=== PATIENT | male | born 1990 | race Caucasian/White ===

== ENCOUNTER 2020-02-20 08:50 | Emergency (ER) | payer OTHER, SELFPAY ==
[2020-02-20 08:58] VITALS: BP 150/91; PULSE 111; RESP 16; TEMP 37; O2SAT 98
--- NOTE | 2020-02-20 09:14 | ED.URI ---
HPI - URI/Sore Throat General Stated Complaint: sore throat cough and chest congest Time Seen by Provider: 02/20/20 09:14 Source: patient History of Present Illness HPI Narrative: Patient presents with cough chest congestion no fever no shortness of breath no chest pain. Patient denies any sore throat no nasal congestion no nasal pressure. Patient has no known exposure to the cold at COVID virus, no recent travel no travel from [facility] and no international travel no known exposure to any positive COVID 19 cases. 2 DAYS AGO . NO FEVER, NO NAUSEA, NO DIARHEA. MD elicited complaint: cough Related Data Allergies Allergy/AdvReac Type Severity Reaction Status Date / Time No Known Allergies Allergy Verified 02/20/20 09:20 Review of Systems Review of Systems: Narrative: CONSTITUTIONAL: Denies chills, or sweats. Reports fever and generalized body aches EYES: Denies visual changes, redness, or discharge. ENT: Denies otalgia. Reports nasal congestion runny nose and sore throat CARDIOVASCULAR: Denies chest pain, palpitations, or edema. RESPIRATORY: Denies dyspnea. Reports occasional cough GASTROINTESTINAL: Denies abdominal pain, nausea, vomiting, or diarrhea. GENITOURINARY: Denies dysuria or hematuria. SKIN: Denies rash or itching. MUSCULOSKELETAL: Denies back pain, joint pain, or myalgia. Reports generalized body aches NEUROLOGIC: Denies headache, numbness, or weakness. PSYCHIATRIC: Denies anxiety or depression. PMFSH Comments At time of signature, agree with nursing past medical, surgical, social and family history. There is no relevant family history pertinent to the presenting complaint Exam Narrative: Exam Narrative: GENERAL APPEARANCE: The patient is a well-developed, well-nourished , in no acute distress. SKIN: Skin is warm and dry without erythema, swelling or exudate. There is good turgor. No tenting. HEAD: Atraumatic. Normocephalic. No temporal or scalp tenderness. EYES: Moist and bright. Sclera and conjunctivae normal. No discharge. PERRLA. Extraocular motions intact. Gross visual acuity intact. EARS: Pinna is normal shape and contour. Clear external auditory canals. TM pearly berger with good cone of light, no erythema or suppuration. Bilateral cerumen noted no gross hearing deficit. NOSE: pink, moist mucosa with good air movement. Clear rhinorrhea without nasal flaring. Septum midline. Mouth: moist mucous membranes. THROAT; mild erythema noted to posterior oropharynx with moderate postnasal drainage. Without exudate or ulceration.. Uvula midline. Normal movement of soft palate. NECK: Supple and nontender with full range of motion without discomfort. No meningeal signs. LUNGS: Equal and bilateral breath sounds without wheezes, rales or rhonchi. CHEST: The chest wall is without retractions or use of accessory muscles. HEART: Has a regular rate and rhythm without murmur, gallops, click or rub. ABDOMEN: Soft, nontender with positive active bowel sounds. No rebound tenderness. EXTREMITIES: Without cyanosis, clubbing or edema. Equal 2+ distal pulses and 2 second capillary refill noted. NEUROLOGIC: alert, active, developmentally normal for age. The patient moves all extremities with normal muscle strength. Normal muscle tone is noted. Normal coordination is noted. NO focal neurological findings noted. Course Vital Signs Vital signs: Vital Signs Temperature 37.0 C 02/20/20 08:58 Pulse Rate 111 H 02/20/20 08:58 Respiratory Rate 16 02/20/20 08:58 Blood Pressure 150/91 H 02/20/20 08:58 Pulse Oximetry 98 02/20/20 08:58 Temperature 37.0 C 02/20/20 08:58 Pulse Rate 111 H 02/20/20 08:58 Respiratory Rate 16 02/20/20 08:58 Blood Pressure 150/91 H 02/20/20 08:58 Pulse Oximetry 98 02/20/20 08:58 Addressed elevated BP today. Today's blood pressure higher than recommended range. Discussed importance of follow -up with PCP and possible grader patrol effects/cardiovascular events related to HTN. Currently patient
== END 2020-02-20 09:30 | disposition home or self-care (01) ==
PROVIDERS: Emergency Provider Nurse Practitioner Family; PCP Internal Medicine
DX: J06.9 Acute upper respiratory infection, unspecified (principal)
CPT/HCPCS: 87880; 99203; G0463

== ENCOUNTER 2020-03-22 08:10 | Emergency (ER) | payer OTHER, SELFPAY ==
[2020-03-22 08:18] VITALS: BP 144/79; PULSE 106; RESP 18; TEMP 36.3; O2SAT 98
--- NOTE | 2020-03-22 08:42 | ED.URI ---
HPI - URI/Sore Throat General Chief Complaint: Upper Respiratory Infection Stated Complaint: sore throat/lump in throat Time Seen by Provider: 03/22/20 08:31 Source: patient, RN notes reviewed and old records reviewed Mode of arrival: ambulatory Limitations: no limitations History of Present Illness HPI Narrative: Patient presents today complaining of Constantly clearing the throat, postnasal drip, dry cough. Symptoms are present in the mornings, but lessen throughout the day. Symptoms have been present for 3 to 4 weeks. Patient was seen at [facility] on 02/20/2020, diagnosed with strep throat, and placed on amoxicillin. States he did finish his course of amoxicillin. He is not trying any other [id number] medications for symptoms prior to arrival. Patient is a non-smoker. MD elicited complaint: other (dry cough, PND) Related Data Allergies Allergy/AdvReac Type Severity Reaction Status Date / Time No Known Allergies Allergy Verified 02/20/20 09:20 Review of Systems Review of Systems: Narrative: CONSTITUTIONAL: Denies body aches, fever, chills, or sweats. EYES: Denies visual changes, redness, or discharge. ENT: Denies rhinorrhea, congestion, sore throat, or otalgia.+Postnasal drip, clearing throat CARDIOVASCULAR: Denies chest pain, palpitations, or edema. RESPIRATORY: Denies dyspnea. +Dry cough GASTROINTESTINAL: Denies abdominal pain, nausea, vomiting, or diarrhea. GENITOURINARY: Denies dysuria or hematuria. SKIN: Denies rash, itching, or wounds. MUSCULOSKELETAL: Denies back pain, joint pain, or myalgia. NEUROLOGIC: Denies headache, numbness, tingling, or weakness. PSYCH: Denies depression or anxiety. PMFSH Comments At time of signature, I have reviewed and agree with nursing past medical, surgical, social and family history unless otherwise noted. Please see nursing chart for further information. There is no relevant family history pertinent to the presenting complaint Exam Narrative: Exam Narrative: GENERAL: Well-appearing, well-nourished, and in no acute distress. HEAD: Normocephalic, atraumatic. EYES: EOMI. No redness or drainage. Conjunctivae normal. ENT: Mucous membranes pink and moist. Nares clear. No rhinorrhea. TMs normal bilaterally. Throat normal. Uvula midline. Moderate clear postnasal drainage. NECK: Normal AROM. Supple. No lymphadenopathy. CHEST: No respiratory distress. Clear to auscultation. HEART: Regular rate and rhythm. No murmur appreciated. Normal peripheral pulses. EXTREMITIES: Normal range of motion. No edema. SKIN: Warm, dry, no rash. Capillary refill normal. Normal skin turgor. NEURO: No focal deficits. Alert and oriented x3. Gait steady. PSYCH: Normal affect. No signs of depression or anxiety. Course Vital Signs Vital signs: Vital Signs Temperature 97.4 F L 03/22/20 08:18 Pulse Rate 106 H 03/22/20 08:18 Respiratory Rate 18 03/22/20 08:18 Blood Pressure 144/79 H 03/22/20 08:18 Pulse Oximetry 98 03/22/20 08:18 Temperature 97.4 F L 03/22/20 08:18 Pulse Rate 106 H 03/22/20 08:18 Respiratory Rate 18 03/22/20 08:18 Blood Pressure 144/79 H 03/22/20 08:18 Pulse Oximetry 98 03/22/20 08:18 Reviewed. Pt has been instructed to follow up with his PCP regarding his elevated blood pressure today. MDM - URI/Sore Throat Differential Diagnosis Differential diagnosis: Likely upper respiratory infection, otitis media, sinusitis, bronchitis, pharyngitis and other (Allergic rhinitis, strep throat) Medical Records Attestation: I reviewed the patient's medical records. Lab Data Attestation: I reviewed the patient's lab results. Labs: Strep Screen Presumptive Negative *(Reference Range: Negative)* Critical Care Time Critical Care Time Critical Care Time: No Discharge Plan Discharge Clinical Impression: Allergic rhinitis Qualifiers: Allergic rhinitis trigger: unspecified Allergic rhinitis seasonality: unspecified Qualified Cod
== END 2020-03-22 08:55 | disposition home or self-care (01) ==
PROVIDERS: Emergency Provider Nurse Practitioner; PCP Internal Medicine
DX: J30.9 Allergic rhinitis, unspecified (principal)
CPT/HCPCS: 87081; 87880; 99213; G0463

== ENCOUNTER 2022-05-10 09:11 | Emergency (ER) | payer OTHER, SELFPAY ==
[2022-05-10 09:16] VITALS: BP 140/90; PULSE 109; RESP 16; TEMP 36.8; O2SAT 97
--- NOTE | 2022-05-10 09:36 | ED.URI ---
HPI - URI/Sore Throat General Chief Complaint: Upper Respiratory Infection Stated Complaint: Sore Throat/Cough/Chest Congestion Time Seen by Provider: 05/10/22 09:26 Source: patient and RN notes reviewed Mode of arrival: ambulatory Limitations: no limitations History of Present Illness HPI Narrative: 31-year-old male presents with concern for sore throat, cough, chest congestion that started Monday. Reports he has been taking several [id number] cold medicines with little relief. Reports he feels the cough worsen with chest congestion prompting him to seek care. He denies shortness of breath. He reports body aches and headache. MD elicited complaint: cough and sore throat Related Data Allergies Allergy/AdvReac Type Severity Reaction Status Date / Time No Known Allergies Allergy Verified 05/10/22 09:33 Review of Systems Review of Systems: CONSTITUTIONAL: Report malaise, chills, sweats EYES: Denies visual changes, redness, or discharge. ENT: Reports rhinorrhea, congestion, and sore throat. CARDIOVASCULAR: Denies chest pain, palpitations, or edema. RESPIRATORY: Reports cough, chest congestion. Denies dyspnea. GASTROINTESTINAL: Denies abdominal pain, nausea, vomiting, diarrhea SKIN: Denies rash or itching. MUSCULOSKELETAL: Reports myalgia. NEUROLOGIC: Reports headache. All systems reviewed & are unremarkable except as noted in HPI and below PMFSH Comments At time of signature, agree with nursing past medical, surgical, social and family history. There is no relevant family history pertinent to the presenting complaint Exam Narrative: GENERAL: Nontoxic-appearing and in no acute distress. HEAD: Normocephalic EYES: PERRLA, conjunctivae clear ENT: Nares clear, turbinates edematous and erythematous, clear discharge. Mucous membranes moist. TM pearly sky with dull light reflex bilaterally; no tragal tenderness. Oropharynx erythematous without lesions. Tonsils not enlarged and without exudate, no drooling, no hoarseness, no trismus, uvula midline. NECK: Supple. No lymphadenopathy CHEST: Clear to auscultation, breath sounds equal. No wheezing, rhonchi, rales, or stridor. No respiratory distress, speaks in full sentences. Cough noted HEART: Regular rate and rhythm. No murmur heard. SKIN: Warm, dry, no rash. NEURO: Alert and oriented x3. PSYCH: Normal mood and affect Course Course Emergency Course: Patient is aware of diagnosis, understands and agrees to treatment plan. Anticipatory guidance given. Patient agrees to follow-up as directed and is aware of reasons to seek care at the emergency department. Portions of this record may have been created with voice recognition software Level of Care: Express Care Visit Vital Signs Vital signs: Vital Signs Temperature 98.2 F 05/10/22 09:16 Pulse Rate 109 H 05/10/22 09:16 Respiratory Rate 16 05/10/22 09:16 Blood Pressure 140/90 05/10/22 09:16 Pulse Oximetry 97 05/10/22 09:16 Oxygen Delivery Room Air 05/10/22 09:16 Temperature 98.2 F 05/10/22 09:16 Pulse Rate 109 H 05/10/22 09:16 Respiratory Rate 16 05/10/22 09:16 Blood Pressure 140/90 05/10/22 09:16 Pulse Oximetry 97 05/10/22 09:16 Oxygen Delivery Room Air 05/10/22 09:16 Reviewed. MDM - URI/Sore Throat MDM Narrative Medical decision making narrative: Differential diagnosis considered: Chan virus, strep pharyngitis, allergic rhinitis, upper respiratory tract infection, sinusitis, rhinosinusitis, nasopharyngitis. viral pharyngitis, otitis media, otitis externa, pneumonia, bronchitis, viral cough syndrome, viral syndrome, and influenza. Exam findings show no acute concerns or changes; patient is non-toxic appearing and is in no distress. Patient is appropriate for outpatient treatment and follow-up. Lab Data Attestation: I reviewed the patient's lab results. Critical Care Time Critical Care Time Critical Care Time: No Discharge Plan Discharge Clinical Impression: COVID
== END 2022-05-10 09:40 | disposition home or self-care (01) ==
PROVIDERS: Emergency Provider Nurse Practitioner; PCP Internal Medicine
DX: U07.1 COVID-19 (principal)
CPT/HCPCS: 87426; 99213; C9803; G0463

== ENCOUNTER 2023-03-17 17:42 | Emergency (ER) | payer OTHER, SELFPAY ==
[2023-03-17 17:50] VITALS: BP 146/87; PULSE 120; RESP 18; TEMP 37.1; O2SAT 97
[2023-03-17 17:57] VITALS: BP 146/87; PULSE 120; RESP 18; TEMP 37.1; O2SAT 97
--- NOTE | 2023-03-17 18:01 | ED.URI ---
HPI - URI/Sore Throat General Chief Complaint: Upper Respiratory Infection Stated Complaint: sore throat Time Seen by Provider: 03/17/23 17:58 Source: patient, RN notes reviewed and old records reviewed Mode of arrival: ambulatory Limitations: no limitations History of Present Illness HPI Narrative: 32 year old male who presents to [facility] care with complaints of cough and sore throat which just started this morning, Patient reports that he has been sleeping most of the day.Patient reports that throat is scratchy and painful and is hard to swallow, has been using gargles for throat pain. Patient reports no known fevers, chills or sweats. Patient noted to have harsh cough at interval denies any expectoration of mucous or shortness of breath. Patient reports no know ill contacts. MD elicited complaint: cough and sore throat Onset (ago): day(s) (this morning) Pain scale (0-10): 6 Exacerbating factors: swallowing Treatments prior to arrival: other (gargles) Related Data Home Medications Medication Instructions Recorded Confirmed pantoprazole 40 mg tablet,delayed 40 mg PO DAILY 03/17/23 03/17/23 release Allergies Allergy/AdvReac Type Severity Reaction Status Date / Time No Known Allergies Allergy Verified 03/17/23 17:55 Review of Systems Review of Systems: CONSTITUTIONAL: Reports malaise,no chills, sweats, or fever. EYES: Denies visual changes, redness, or discharge. ENT: Reports rhinorrhea, congestion, sinus pain,no otalgia positive for sore throat. CARDIOVASCULAR: Denies chest pain, palpitations, or edema. RESPIRATORY: Reports cough.? Denies dyspnea. GASTROINTESTINAL: Denies abdominal pain, nausea, vomiting, diarrhea SKIN: Denies rash or itching. MUSCULOSKELETAL: Denies myalgia. NEUROLOGIC: Denies headache. All systems reviewed & are unremarkable except as noted in HPI and below PMFSH Past Medical History Medical History (Updated 03/19/23 @ 14:42 by Marli Ruggiero NP) COVID-19 04/2022 GERD (gastroesophageal reflux disease) Social History Social History (Updated 03/19/23 @ 14:42 by Marli Ruggiero NP) Smoking status: Never smoker Living arrangements: with family Gender identity (if verbalized by the patient): Male Comments At time of signature, agree with nursing past medical, surgical, social and family history. There is no relevant family history pertinent to the presenting complaint Exam Narrative: GENERAL: Well-appearing, well-nourished, and in no acute distress. HEAD: Normocephalic EYES: PERRLA, conjunctivae clear ENT: Nares clear, turbinates edematous and erythematous, clear discharge. Mucous membranes moist. TM pearly sky with dull light reflex bilaterally; no tragal tenderness. Oropharynx erythematous without lesions. Tonsils red not enlarged and without exudate, no drooling, no hoarseness, no trismus, uvula midline.post nasal drainage noted. NECK: Supple. No lymphadenopathy CHEST: Clear to auscultation, breath sounds equal. No wheezing, rhonchi, rales, or stridor. No respiratory distress, speaks in full sentences. sough, SAO2 97% on room air NEURO: Alert and oriented x3. PSYCH: Normal mood and affect Course Course Emergency Course: Patient is aware of diagnosis, understands and agrees to treatment plan.? Anticipatory guidance given.? Patient agrees to follow-up as directed and is aware of reasons to seek care at the emergency department. Portions of this record may have been created with voice recognition software Level of Care: Express Care Visit Vital Signs Vital signs: Vital Signs Temperature 37.1 C 03/17/23 17:50 Pulse Rate 120 H 03/17/23 17:50 Respiratory Rate 18 03/17/23 17:50 Blood Pressure 146/87 H 03/17/23 17:50 Pulse Oximetry 97 03/17/23 17:50 Oxygen Delivery Room Air 03/17/23 17:50 Temperature 37.1 C 03/17/23 17:57 Pulse Rate 120 H 03/17/23 17:57 Respiratory Rate 18 03/17/23 17:57 Blood Pressure 146/8
== END 2023-03-17 18:20 | disposition home or self-care (01) ==
PROVIDERS: Emergency Provider Registered Nurse; PCP Internal Medicine
DX: J06.9 Acute upper respiratory infection, unspecified (principal); K21.9 Gastro-esophageal reflux disease without esophagitis; Z86.16 Personal history of COVID-19
CPT/HCPCS: 87081; 87880; 99213; G0463

== ENCOUNTER 2023-07-22 08:10 | Emergency (ER) | payer OTHER, SELFPAY ==
[2023-07-22 08:14] VITALS: BP 151/100; PULSE 104; RESP 20; TEMP 36.8; O2SAT 96
--- NOTE | 2023-07-22 08:33 | ED.URI ---
HPI - URI/Sore Throat General Chief Complaint: Upper Respiratory Infection Stated Complaint: Heachache, Throatache, Congestion History of Present Illness HPI Narrative: PATIENT PRESENTS WITH SORE THROAT, COUGH AND NASAL CONGESTION NO PROBLEMS SWALLOWING AND NO DROOLING NORMAL PO INTAKE NO SHORTNESS OF BREATH AND NO CHEST PAIN Related Data Home Medications Medication Instructions Recorded Confirmed pantoprazole 40 mg tablet,delayed 40 mg PO DAILY 03/17/23 03/17/23 release Allergies Allergy/AdvReac Type Severity Reaction Status Date / Time No Known Allergies Allergy Verified 03/17/23 17:55 Review of Systems Review of Systems: CONSTITUTIONAL: DENIES CHILLS, OR SWEATS. REPORTS FEVER AND GENERALIZED BODY ACHES EYES: DENIES VISUAL CHANGES, REDNESS, OR DISCHARGE. ENT: DENIES OTALGIA. REPORTS NASAL CONGESTION RUNNY NOSE AND SORE THROAT CARDIOVASCULAR: DENIES CHEST PAIN, PALPITATIONS, OR EDEMA. RESPIRATORY: DENIES DYSPNEA. REPORTS OCCASIONAL COUGH GASTROINTESTINAL: DENIES ABDOMINAL PAIN, NAUSEA, VOMITING, OR DIARRHEA. GENITOURINARY: DENIES DYSURIA OR HEMATURIA. SKIN: DENIES RASH OR ITCHING. MUSCULOSKELETAL: DENIES BACK PAIN, JOINT PAIN, OR MYALGIA. REPORTS GENERALIZED BODY ACHES NEUROLOGIC: DENIES HEADACHE, NUMBNESS, OR WEAKNESS. PSYCHIATRIC: DENIES ANXIETY OR DEPRESSION. [facility] [place] Past Medical History Medical History (Updated 07/22/23 @ 08:41 by GIL Hawkins) COVID-19 04/2022 GERD (gastroesophageal reflux disease) Social History Social History (Updated 03/19/23 @ 14:42 by Marli Ruggiero NP) Smoking status: Never smoker Living arrangements: with family Gender identity (if verbalized by the patient): Male Comments AT TIME OF SIGNATURE, AGREE WITH NURSING PAST MEDICAL, SURGICAL, SOCIAL AND FAMILY HISTORY. THERE IS NO RELEVANT FAMILY HISTORY PERTINENT TO THE PRESENTING COMPLAINT Exam Narrative: THE PATIENT IS A WELL-DEVELOPED, WELL-NOURISHED IN NO ACUTE DISTRESS. SKIN: SKIN IS WARM AND DRY WITHOUT ERYTHEMA, SWELLING OR EXUDATE. THERE IS GOOD TURGOR. NO TENTING. HEAD: ATRAUMATIC. NORMOCEPHALIC. NO TEMPORAL OR SCALP TENDERNESS. EYES: MOIST AND BRIGHT. SCLERA AND CONJUNCTIVAE NORMAL. NO DISCHARGE. PERRLA. EXTRAOCULAR MOTIONS INTACT. GROSS VISUAL ACUITY INTACT. EARS: PINNA IS NORMAL SHAPE AND CONTOUR. CLEAR EXTERNAL AUDITORY CANALS. TM PEARLY ELLIOTT WITH GOOD CONE OF LIGHT, NO ERYTHEMA OR SUPPURATION. BILATERAL CERUMEN NOTED NO GROSS HEARING DEFICIT. NOSE: PINK, MOIST MUCOSA WITH GOOD AIR MOVEMENT. CLEAR RHINORRHEA WITHOUT NASAL FLARING. SEPTUM MIDLINE. MOUTH: MOIST MUCOUS MEMBRANES. THROAT; MILD ERYTHEMA NOTED TO POSTERIOR OROPHARYNX WITH MODERATE POSTNASAL DRAINAGE. WITHOUT EXUDATE OR ULCERATION.. UVULA MIDLINE. NORMAL MOVEMENT OF SOFT PALATE. NECK: SUPPLE AND NONTENDER WITH FULL RANGE OF MOTION WITHOUT DISCOMFORT. NO MENINGEAL SIGNS. LUNGS: EQUAL AND BILATERAL BREATH SOUNDS WITHOUT WHEEZES, RALES OR RHONCHI. CHEST: THE CHEST WALL IS WITHOUT RETRACTIONS OR USE OF ACCESSORY MUSCLES. HEART: HAS A REGULAR RATE AND RHYTHM WITHOUT MURMUR, GALLOPS, CLICK OR RUB. ABDOMEN: SOFT, NONTENDER WITH POSITIVE ACTIVE BOWEL SOUNDS. NO REBOUND TENDERNESS. EXTREMITIES: WITHOUT CYANOSIS, CLUBBING OR EDEMA. EQUAL 2+ DISTAL PULSES AND 2 SECOND CAPILLARY REFILL NOTED. NEUROLOGIC: ALERT, ACTIVE, . THE PATIENT MOVES ALL EXTREMITIES WITH NORMAL MUSCLE STRENGTH. NORMAL MUSCLE TONE IS NOTED. NORMAL COORDINATION IS NOTED. NO FOCAL NEUROLOGICAL FINDINGS NOTED. Course Course Level of Care: Express Care Visit Vital Signs Vital signs: Vital Signs Temperature 36.8 C 07/22/23 08:14 Pulse Rate 104 H 07/22/23 08:14 Respiratory Rate 20 07/22/23 08:14 Blood Pressure 151/100 H 07/22/23 08:14 Pulse Oximetry 96 07/22/23 08:14 Oxygen Delivery Room Air 07/22/23 08:14 Temperature 36.8 C 07/22/23 08:14 Pulse Rate 104 H 07/22/23 08:14 Respiratory Rate 20 07/22/23 08:14 Blood Pressure 151/100 H
== END 2023-07-22 08:51 | disposition home or self-care (01) ==
PROVIDERS: Emergency Provider Nurse Practitioner Family; PCP Internal Medicine
DX: U07.1 COVID-19 (principal); K21.9 Gastro-esophageal reflux disease without esophagitis
CPT/HCPCS: 87081; 87426; 87880; 99213; C9803; G0463

== ENCOUNTER 2023-11-18 09:54 | Emergency (ER) | payer OTHER, SELFPAY ==
[2023-11-18 09:59] VITALS: BP 141/87; PULSE 108; RESP 16; TEMP 36.6; O2SAT 97
--- NOTE | 2023-11-18 10:29 | ED.URI ---
HPI - URI/Sore Throat General Chief Complaint: Upper Respiratory Infection Stated Complaint: Sore Throat Time Seen by Provider: 11/18/23 10:29 Source: patient, RN notes reviewed and old records reviewed Mode of arrival: ambulatory Limitations: no limitations History of Present Illness HPI Narrative: 33-year-old male who presents to [facility] Care with complaints sore throat, nasal congestion and drainage, and cough for the past 4-5 days. Patient reports that he has had some sinus congestion for weeks but symptoms have increased for the past 4-5 days. Patient states that he has used Chloraseptic throat spray for his throat pain. Patient report no known fevers,chills or body aches, MD elicited complaint: cough and sore throat Onset (ago): day(s) (4-5) Severity: moderate Able to tolerate fluids by mouth: Yes Treatments prior to arrival: other (chloroseptic, Mucinex) Related Data Home Medications Medication Instructions Recorded Confirmed pantoprazole 40 mg tablet,delayed 40 mg PO DAILY 03/17/23 03/17/23 release Allergies Allergy/AdvReac Type Severity Reaction Status Date / Time No Known Allergies Allergy Verified 11/18/23 10:02 Review of Systems Review of Systems: CONSTITUTIONAL: Denies malaise, chills, sweats, or fever. EYES: Denies visual changes, redness, or discharge. ENT: Reports rhinorrhea, congestion, sinus pain,no otalgia and positive for sore throat. CARDIOVASCULAR: Denies chest pain, palpitations, or edema. RESPIRATORY: Reports cough.? Denies dyspnea. GASTROINTESTINAL: Denies abdominal pain, nausea, vomiting, diarrhea SKIN: Denies rash or itching. MUSCULOSKELETAL: Denies myalgia. NEUROLOGIC: Denies headache. All systems reviewed & are unremarkable except as noted in HPI and below PMFSH Past Medical History Medical History (Updated 11/20/23 @ 10:30 by Marli Ruggiero NP) Collar bone fracture surgical repair left with plate COVID-19 04/2022 GERD (gastroesophageal reflux disease) Social History Social History Smoking status: Never smoker Living arrangements: with family Gender identity (if verbalized by the patient): Male Comments At time of signature, agree with nursing past medical, surgical, social and family history. There is no relevant family history pertinent to the presenting complaint Exam Narrative: GENERAL: Well-appearing, well-nourished, and in no acute distress. HEAD: Normocephalic EYES: PERRLA, conjunctivae clear ENT: Nares clear, turbinates edematous and erythematous, clear discharge. Mucous membranes moist. TM pearly sky with dull light reflex bilaterally; no tragal tenderness. Oropharynx erythematous without lesions. Tonsils enlarged and without exudate, no drooling, no hoarseness, no trismus, uvula midline.post nasal drainage NECK: Supple. No lymphadenopathy CHEST: Clear to auscultation, breath sounds equal. No wheezing, rhonchi, rales, or stridor. No respiratory distress, speaks in full sentences.cough noted SO2 97% on room air HEART: Regular rate and rhythm. No murmur heard. SKIN: Warm, dry, no rash. NEURO: Alert and oriented x3. PSYCH: Normal mood and affect Course Course Emergency Course: Patient is aware of diagnosis, understands and agrees to treatment plan.? Anticipatory guidance given.? Patient agrees to follow-up as directed and is aware of reasons to seek care at the emergency department. Portions of this record may have been created with voice recognition software Level of Care: Express Care Visit Vital Signs Vital signs: Vital Signs Temperature 36.6 C 11/18/23 09:59 Pulse Rate 108 H 11/18/23 09:59 Respiratory Rate 16 11/18/23 09:59 Blood Pressure 141/87 H 11/18/23 09:59 Pulse Oximetry 97 11/18/23 09:59 Oxygen Delivery Room Air 11/18/23 09:59 Temperature 36.6 C 11/18/23 09:59 Pulse Rate 108 H 11/18/23 09:59 Respiratory Rat
== END 2023-11-18 10:55 | disposition home or self-care (01) ==
PROVIDERS: Emergency Provider Registered Nurse; PCP Internal Medicine
DX: J06.9 Acute upper respiratory infection, unspecified (principal); J02.9 Acute pharyngitis, unspecified; K21.9 Gastro-esophageal reflux disease without esophagitis; Z86.16 Personal history of COVID-19
CPT/HCPCS: 87081; 87880; 99213; G0463

== ENCOUNTER 2025-02-14 08:51 | Emergency (ER) | payer OTHER, SELFPAY ==
[2025-02-14 09:01] VITALS: BP 168/115; PULSE 81; RESP 20; TEMP 36.2; O2SAT 98
--- NOTE | 2025-02-14 09:05 | ED_ITS ---
HPI - Back Pain/Injury General Chief Complaint: Back Pain/Injury Stated Complaint: back pain Time Seen by Provider: 02/14/25 09:05 Source: patient Mode of arrival: ambulatory Limitations: no limitations History of Present Illness HPI Narrative: 34 yo M presents with c/o low back pain for 1 wk. Was sore after cutting grass. has also been carrying his 100lb dog due to dog having injury. Ambulatory with steady gait. No radiation of pain. No loss of bowel or bladder. No numbness/weakness. taking aspirin body and back with little relief of pain. All systems reviewed and negative except as noted above. Related Data Home Medications ?Medication ?Instructions ?Recorded ?Confirmed ?Last Taken ?Type pantoprazole 40 mg tablet,delayed 40 mg PO DAILY 03/17/23 03/17/23 Unknown History release gabapentin 100 mg capsule mg 02/14/25 Unknown History Allergies Allergy/AdvReac Type Severity Reaction Status Date / Time No Known Allergies Allergy Verified 11/18/23 10:02 Review of Systems Review of Systems: CONSTITUTIONAL: Denies fever, chills, or sweats. EYES: Denies visual changes, redness, or discharge. ENT: Denies rhinorrhea, congestion, sore throat, or otalgia. CARDIOVASCULAR: Denies chest pain, palpitations, or edema. RESPIRATORY: Denies cough or dyspnea. GASTROINTESTINAL: Denies abdominal pain, nausea, vomiting, or diarrhea. GENITOURINARY: Denies dysuria or hematuria. SKIN: Denies rash or itching. MUSCULOSKELETAL: Reports back pain. Denies joint pain, or myalgia. NEUROLOGIC: Denies headache, numbness, or weakness. PSYCHIATRIC: Denies anxiety or depression. All other systems reviewed are negative, except as documented in HPI. [facility], LAT[facility] Past Medical History Medical History (Updated 02/14/25 @ 09:14 by Nuzhat Soto NP) Collar bone fracture surgical repair left with plate COVID-19 04/2022 GERD (gastroesophageal reflux disease) Social History Social History Smoking status: Never smoker Living arrangements: with family Gender identity (if verbalized by the patient): Male Comments At time of signature, agree with nursing past medical, surgical, social and family history. There is no relevant family history pertinent to the presenting complaint. Exam Narrative: GENERAL: This is a well-nourished, well-developed patient, in no apparent distress. HEAD: normocephalic, atraumatic. EYES: PERRL. Sclera clear/white. Vision is grossly intact. EARS: External ears normal NOSE: External nose normal NECK: Neck supple, non-tender without lymphadenopathy, masses or thyromegaly. CARDIOVASCULAR: Regular rate and rhythm without murmurs, gallops, or rubs. RESPIRATORY: Clear to auscultation. Breath sounds equal bilaterally. No wheezes, rales, or rhonchi. SKIN: warm, Dry, intact with no suspicious lesions or rash, good texture and turgor. NEURO: awake, alert, and oriented to person, place and time. There were no obvious focal neurologic abnormalities. EXTREMITIES: No joint tenderness, effusion, or edema noted. No calf tenderness. Negative Homans sign bilaterally. BACK: No midline tenderness. Generalized low back muscular tenderness. Decreased flexion due to muscular tightness. Lower extremity strength 5/5 bilaterally. Course Course Level of Care: Express Care Visit Vital Signs Vital signs: Vital Signs Temperature 36.2 C L 02/14/25 09:01 Pulse Rate 81 02/14/25 09:01 Respiratory Rate 20 02/14/25 09:01 Blood Pressure 168/115 H 02/14/25 09:01 Pulse Oximetry 98 02/14/25 09:01 Oxygen Delivery Room Air 02/14/25 09:01 Temperature 36.2 C L 02/14/25 09:01 Pulse Rate 81 02/14/25 09:01 Respiratory Rate 20 02/14/25 09:01 Blood Pressure 168/115 H 02/14/25 09:01 Pulse Oximetry 98 02/14/25 09:01 Oxygen Delivery Room Air 02/14/25 09:01 Reviewed, blood pressure elevated today. Patient states took blood pressure medication right before arrival. MDM - Back Pain/Injury MDM Narrative Medical decision making narrative: Will treat low back pain with prednisone, methocarbamol. Recommend stretching, ice heat. Will follow up with primary care physician if not improving. No neuro deficits. Please be advised this is a medical document. It is intended for [id number] communication. It is written in medical language and may contain unfamiliar abbreviations or verbiage. Medical documents are intended to carry relevant information, facts as evident, and the clinical opinion of the practitioner at the time of the encounter. This report may have been done utilizing a voice recognition system. Attempts have been made to correct errors. However, there may be uncorrected grammatical, spelling, and recognition errors present. The file time of this note does not necessarily represent the time of service. Discharge Plan Discharge Clinical Impression: Strain of muscle, fascia and tendon of lower back, initial encounter, Elevated blood pressure reading Patient Disposition: Home, Self-Care Condition: Stable Instructions: Low Back Strain (ED) Additional Instructions: Stop taking Zelda Back and Body And start prescription medications today. Methocarbamol as a muscle relaxant may cause drowsiness. Do not take this medication while driving. Alternate between ice and heat. Do stretching exercises as tolerated. Follow-up with your primary care physician if symptoms are not improving. Patient Language: [place] Prescriptions: New ibuprofen 800 mg tablet 800 mg PO TID PRN (Reason: pain) Qty: 30 0RF prednisone 20 mg tablet See Rx Instructions .ROUTE .COMPLEX Qty: 12 0RF Rx Instructions: Take 3 tablets today, then 2 tablets daily for 3 days then 1 tablet daily for 3 days. methocarbamol 750 mg tablet 750 mg PO Q8H PRN (Reason: muscle pain/spasm) Qty: 30 0RF lidocaine 5 % adhesive patch,medicated 1 patch topical DAILY Qty: 15 0RF Rx Instructions: leave on most painful area for up to 12 hrs No Action gabapentin 100 mg capsule pantoprazole 40 mg tablet,delayed release (DR/EC) 40 mg PO DAILY Follow-up/Referrals: Sj,Behzad Amaro MD [Primary Care Provider] - Time of Disposition: 09:15
--- OUTSIDE RECORDS SUMMARY | 2025-02-14 09:47 | XMS_ITS | Clinical Summary ---
Author Organization [facility] Address [address] [place] [address] Care Team Providers Care Ladler Name Role Phone Behzad Gustafson MD Primary Care Provider + Tim Velasquez MD Unavailable Allergies No known active allergies Medications metoprolol tartrate (LOPRESSOR) 25 mg immediate release tablet Take 1 tablet (25 mg total) by mouth 2 (two) times a day 60 tablet 1 Active Additional Information Patient not taking.Reported on 03/23/2021 HYDROcodone-awa taminophen (NORCO) 7.5-325 mg per tablet 1 Active thiamine (VITAMIN B-1) 100 mg tablet Take by mouth daily 1 Active Active Problems Problem Noted Date Diagnosed Date Laceration of left forearm 03/12/2021 Overview (07/24/2021): Last Assessment & Plan: Since last visit there is been no complaints. He denies any pain. The area continues to heal in nicely. He will now just place a triple ointment or bacitracin over it and keep it covered. The wound is about half the size as it was compared to when he was in the hospital. It may take a further 2 or 3 weeks to heal but should slowly scar and placed in that time period we will see him back in 2 weeks to re-evaluate. Assessment & Plan (03/23/2021 1:52 PM CDT): No restrictions from surgical standpoint. Okay to return to work. Patient will call with any further questions or concerns. Assessment & Plan (03/09/2021 10:04 AM CDT): Since last visit there is been no complaints. He denies any pain. The area continues to heal in nicely. He will now just place a triple ointment or bacitracin over it and keep it covered. The wound is about half the size as it was compared to when he was in the hospital. It may take a further 2 or 3 weeks to heal but should slowly scar and placed in that time period we will see him back in 2 weeks to re-evaluate. Assessment & Plan (03/04/2021 10:12 AM CDT): The base of the remaining open wound was touched up with silver nitrate. Some remaining scab was removed. He will continue to do the wet to dry dressing changes daily. We will see him back next week to re-evaluate again Assessment & Plan (02/25/2021 10:28 AM CDT): Some of the surrounding scab has been removed. The base is granulating in nicely. They will continue to do the local packing changes for another week. We will see him back at that time to reassess. 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 He will need to be off for at least another 2 weeks until this fully heals in. We will address returning to work at that time Alcohol induced fatty liver 02/13/2021 Alcohol withdrawal syndrome with complication Transaminitis 02/12/2021 Sinus tachycardia 02/12/2021 Cellulitis of left upper extremity 02/12/2021 Elevated blood pressure reading 02/12/2021 Retained orthopedic hardware 04/27/2020 Hyperlipidemia 11/27/2018 Closed fracture of clavicle 07/18/2013 Immunizations Immunization Administration Dates Next Due DTP 12/03/1990,03/21/1989,1988 ,1988 Hep B, Adolescent or Pediatric 06/23/1998,1997,12/23/1997 Influenza, Trivalent, IM (MDV) 09/10/2020 MMR 11/28/1989 OPV 12/03/1990,03/21/1989,1988 ,1988 Tdap 01/31/2021 Medical History Medical History Date Comments Personal history of other en docrine, nutritional and metabolic disease History of diabetes mellitus - (Added by TW Conv) Hypertension Family History Medical History Relation Name Comments Heart disease Other 1 Heart Disease - (Added by TW Conv) Diabetes Other 2 Diabetes Mellit us - (Added by TW Conv) Relation Name Status Comments Other 1 Other 2 Social History Tobacco Use Types Packs/Day Years Used Date Smoking Tobacco: Former Smokeless Tobacco: Never Alcohol Use Standard Drinks/Week Comments Yes 6 (1 standard drink = 0.6 oz pur e alcohol) AUDIT-C Answer Date Recorded Q1: How often do you have a drink containing alcohol? 4 or more times a week 02/25/2021 Q2: How many drinks containi ng alcohol do you have on a typical day when you are drinking? 3 or 4 Q3: How often do you have si x or more drinks on one occasion? Weekly 02/25/2021 Sex and Gender Information Value Date Recorded Sex Assigned at Not on file Legal Sex Male 4:43 AM F[employer]ER BR[employer] MAN Gender Identity Not on file Sexual Orientation Not on file Obstetrics History Last Filed Vital Signs Vital Sign Reading Time Taken Comments Blood Pressure 145/93 07/25/2021 2:00 AM CDT Pulse 67 07/25/2021 2:00 AM CDT Temperature 36.7 C (98.1 F) 07/24/2021 10:37 PM CDT Respiratory Rate 12 07/25/2021 2:00 AM CDT Oxygen Saturation 96% 07/25/2021 2:00 AM CDT Inhaled Oxygen Concentration - - Weight 86.2 kg (190 lb) 07/24/2021 10:37 PM CDT Height 177.8 cm (5' 10 ) 07/24/2021 10:37 PM CDT Body Mass Index 27.26 07/24/2021 10:37 PM CDT Plan of Treatment Not on file Insurance [employer] Advance Directives For more information, please contact: [phone] * Full Code (Latest Code Status on File) Date Activated Date Inactivated Comments 02/12/2021 7:04 AM 02/13/2021 8:04 PM Healthcare Agents on File Name Relationship Healthcare Agent [facility] p Communication Stacy Jones Spouse [employer] Alternate [employer] Car e Agent Care Teams Ladler Relationship Specialty Start Date End Date Behzad Gustafson MD PCP - General 10/12/19 Tim Velasquez MD Consulting Physician General Surgery 02/13/21
--- OUTSIDE RECORDS SUMMARY | 2025-02-14 09:47 | XMS_ITS | Clinical Summary ---
Author Organization [facility] Address [address] [facility] [[email or web address]] [address] [place] [address] Phone Care Team Providers Care Calibrator Barometers Name Role Phone Behzad Gustafson MD Primary Care Provider [phone] Kirby Mcknight MD Unavailable SchKira acosta APRN, TELEPHONE LINEMAN Unavailable Allergies No known active allergies Medications pantoprazole (PROTONIX) 40 MG Tablet Delayed ResponseIndicatio ns:Dysphagia, unspecified type,Gastroesopha geal reflux disease without esophagitis Take 1 Tablet by mouth daily. 90 Tablet 3 4 Active gabapentin (NEURONTIN) 100 MG CapsuleIndication s:Alcohol withdrawal syndrome with complication (HCC) Take 1 Capsule by mouth 3 times daily. 270 Capsule 5 Active QUEtiapine (SEROquel) 100 MG TabletIndications :Alcohol withdrawal syndrome with complication (HCC) TAKE 1 TABLET BY MOUTH EVERY NIGHT 90 Tablet 5 Active propranolol (INDERAL) 40 MG TabletIndications :Alcohol withdrawal syndrome with complication (HCC) TAKE 1 TABLET BY MOUTH TWICE DAILY 180 Tablet 5 Active Active Problems Problem Noted Date Diagnosed Date Gastroesophageal reflux disease without esophagi tis 08/16/2024 Anxiety and depression 02/19/2024 Alcohol induced fatty liver 02/13/2021 Alcohol withdrawal syndrome with complication Mixed hyperlipidemia 11/27/2018 Resolved Problems Problem Noted Date Diagnosed Date Resolved Date Laceration of left forearm 03/12/2021 0 08/16/2024 Overview (03/12/2021): Last Assessment & Plan: Since last visit [...] him back in 2 weeks to re-evaluate. Encounters Date Type Department Care Team Description [facility] [address] [place] [address] Behzad Gustafson MD Medication Refill 12/13/20[facility] [address] [place], [place] [address] Behzad Gustafson MD Medication Refill from Last 3 Months Immunizations Immunization Administration Dates Next Due DTP Vaccine 12/03/1990, 9,1988,1987 Hepatitis B Vaccine, Pediatric/adolescent 06/23/1998,01/20/1998,12/23/1997 Influenza Vaccine greater than 3 yrs 09/10/2022, 09/10/2020 Influenza, Seasonal, Injecta ble, Undefined 09/10/2020 MMR Vaccine 11/28/1989 OPV 12/03/1990, 9,1988,1987 TDAP Vaccine 01/31/2021 Family History Medical History Relation Name Comments No Known Problems Brother 1 No Known Problems Brother 2 Diabetes Father No Known Problems Mother Diabetes Paternal Grandfather Heart Attack Paternal Grandmother No Known Problems Sister Relation Name Status Comments Brother 1 Alive Brother 2 Alive Father Alive Mother Alive Paternal Grandfather Alive Paternal Grandmother Sister Alive Social History Tobacco Use Types Packs/Day Years Used Date Smoking Tobacco: Former Cigars Q uit: 2021 Smokeless Tobacco: Never Tobacco Cessation:Counseling Given: Not Answered Comments:1 cigar/mo Alcohol Use Standard Drinks/Week Comments Yes 10 (1 standard drink = 0.6 oz pu re alcohol) [facility] Utilities Answer Date Recorded In the past 12 months has th e electric, gas, oil, or water company threatened to shut off services in your home? No 08/16/2024 Social Connection and Isolation Panel [NHANES] A nswer Date Recorded In a typical week, how many times do you talk on the phone with family, friends, or neighbors? Three times a week 08/16/2024 How often do you get togethe r with friends or relatives? Once a week 08/16/2024 How often do you attend chur ch or oriental orthodox services? Never 08/16/2024 Active Member of Clubs or Organizations Not on f ile 08/16/2024 Attends Club or Organization Meetings Not on jeff e 08/16/2024 Marital Status Not on file 08/16/2024 AUDIT-C Answer Date Recorded Q1: How often do you have a drink containing alc ohol? Monthly or less 08/16/2024 Q2: How many drinks containi ng alcohol do you have on a typical day when you are drinking? 1 or 2 08/16/2024 Q3: How often do you have si x or more drinks on one occasion? Less than monthly 08/16/2024 Overall Financial Resource Strain (CARDIA) Answe r Date Recorded How hard is it for you to pa y for the very basics like food, housing, medical care, and heating? Patient declined 08/16/2024 PHQ-2 Answer Date Recorded Total Score - Questions 1-9 0 07/29 [facility] - Occupational Stress Questionnaire Answer Date Recorded Do you feel stress - tense, restless, nervous, or anxious, or unable to sleep at night because your mind is troubled all the time - these days? To some extent 08/16/2024 Exercise Vital Sign Answer Date Recorde d On average, how many days pe r week do you engage in moderate to strenuous exercise (like a brisk walk)? 5 days Minutes of Exercise per Session Not on file 08/16/2024 Hunger Vital Sign Answer Date Recorded Within the past 12 months, y ou worried that your food would run out before you got the money to buy more. Never true 08/16/20 24 Within the past 12 months, t he food you bought just didn't last and you didn't have money to get more. Never true 08/16/2024 PRAPARE - Transportation Answer Date Re corded In the past 12 months, has l ack of transportation kept you from medical appointments or from getting medications? No 07/29 In the past 12 months, has l ack of transportation kept you from meetings, work, or from getting things needed for daily living? No 08/16/2024 Housing Stability Vital Sign Answer Tj e Recorded In the last 12 months, was t here a time when you were not able to pay the mortgage or rent on time? No 08/16/2024 In the past 12 months, how m any times have you moved where you were living? 0 08/16/2024 At any time in the past 12 m [facility], were you homeless or living in a correction (including now)? No 08/16/2024 Sexually Active Control Partners Comments Yes Surgical Female Sex and Gender Information Value Date Recorded Sex Assigned at Not on file Legal Sex Male 7:57 AM CDT Gender Identity Not on file Sexual Orientation Not on file Occupation Industry Job Start Date Job End Date [employer] Not on file Not on file Not on file Last Filed Vital Signs Vital Sign Reading Time Taken Comments Blood Pressure 138/80 08/16/2024 2:09 PM CDT Pulse 76 08/16/2024 2:09 PM CDT Temperature 36.1 C (97 F) 08/16/2024 2:09 PM CDT Respiratory Rate 20 08/16/2024 2:09 PM CDT Oxygen Saturation 97% 08/16/2024 2:09 PM CDT Inhaled Oxygen Concentration - - Weight 95.7 kg (211 lb) 08/16/2024 2:09 PM CDT Height 177.8 cm (5' 10 ) 08/16/2024 2:09 PM CDT Body Mass Index 30.28 08/16/2024 2:09 PM CDT Plan of Treatment Upcoming Encounters Date Type Department Care Team (Late st Contact Info) Description 02/18/2025 8:00 AM CDT Office Visit [facility] [place] [address] [place] [id number] Behzad Gustafson MD [address] [place] [address] Health Maintenance Due Date Last Done Comments Hepatitis C Virus (HCV) Screening 1988 Influenza Immunization (#1) 07/28/202408/27, 09/10/2020, 09/10/2020 SARS-COV-2 Immunization ( - 2023- season) 2024 03/11/2021, 02/18/2021 DTaP/Tdap/Td Immunization (6 - Td or Tdap) 01/31/2031 01/31/2021, 12/03/1990, 03/21/1989, Additional history exists Respiratory Syncytial Virus (RSV) Immunization (Adult) (1 - 1-dose 75+ series) 2063 Hepatitis B Immunization Completed 998, 01/20/1998, 12/23/1997 Meningococcal Immunization (ACWY) Aged Out No longer eligible based on patient's age to complete this topic Pneumococcal Immunization Combined Aged Out No longer eligible based on patient's age to complete this topic Rotavirus Immunization Aged Out No lo nger eligible based on patient's age to complete this topic Insurance [facility] Care Teams Calibrator Barometers Relationship Specialty Start Date End Date Behzad Gustafson MD [address] [place] [address] PCP - General Internal Medicine 05/10/19 Kirby Mcknight MD [address] [place] [address] Consulting Physician Orthopaedic Surgery 02/24/21 Kira Eisenberg APRN, TELEPHONE LINEMAN [address] [place] [address] Nurse Practitioner Gastroenterology 12/20/22
--- OUTSIDE RECORDS SUMMARY | 2025-02-14 09:47 | XMS_ITS | Clinical Summary ---
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[employer] Gender Identity Not on file Sexual Orientation Not on file Plan of Treatment Health Maintenance Due Date Last Done Comments Annual Physical 1991 Hepatitis C 2006 DTaP, Tdap and Td Vaccines ( 1 - Tdap) 2007 Hepatitis B Vaccines (1 of 3 - 19+ 3-dose series) 2007 COVID-19 Vaccine (2023-2 5 season) 2024 Influenza Adult (#1) 2024 HPV Vaccines Aged Out No longer eligi ble based on patient's age to complete this topic Meningococcal B Vaccine Aged Out No l onger eligible based on patient's age to complete this topic Meningococcal Vaccine Aged Out No gia red eligible based on patient's age to complete this topic Pneumococcal Vaccine: Pediat rics (0 to 5 Years) and At-Risk Patients (6 to 64 Years) Aged Out No longer eligible b ased on patient's age to complete this topic RSV Immunizations Under 20 Months Aged Out No longer eligible based on patient's age to complete this topic
--- OUTSIDE RECORDS SUMMARY | 2025-02-14 09:47 | XMS_ITS | Encounter Summary ---
Author Organization [facility] Address [address] [place] [address] Phone Care Team Providers Care Qualitative Researcher Name Role Phone Behzad Gustafson MD Primary Care Provider [phone] Kirby Mcknight MD Unavailable Kira Eisenberg APRN, [facility] Unavailable Reason for Visit * Reason Comments Medication Refill Encounter Details Date Type Department Care Team (Late st Contact Info) Description 08/16/2024 Refill [facility] - Primary Care - [place] [address] [place] [address] Behzad Gustafson MD [address] [place] [address] Medication Refill Social History Tobacco Use Types Packs/Day Years Used Date Smoking Tobacco: Former Cigars Q uit: 2021 Smokeless Tobacco: Never Comments:1 cigar/mo Alcohol Use Standard Drinks/Week Comments Yes 10 (1 standard drink = 0.6 oz pu re alcohol) [facility] Utilities Answer Date Recorded In the past 12 months has [employer] electric, gas, oil, or water company [...] Total Score - Questions 1-9 0 07/29 [facility] - Occupational Stress Questionnaire Answer Date Recorded [...] any time in the past 12 m [facility], were you homeless or living in a group home (including now)? No 08/16/2024 Sexually Active Control Partners Comments Yes Surgical Female Sex and Gender Information Value Date Recorded Sex Assigned at Not on file Legal Sex Male 7:57 AM CDT Gender Identity Not on file Sexual Orientation Not on file Occupation Industry Job Start Date Job End Date [employer] Not on file Not on file Not on file documented as of this encounter Functional Status * Audit-C Score Answer Date of Assessment Author 2 08/16/2024 2:00 PM CDT [facility] * Within the last year, have you been humiliated or emotionally abused in other ways by your partner or ex-partner? Answer Date of Assessment Author No 08/16/2024 2:00 PM T [facility] [employer] * Within the last year, have you been afraid of your partner or ex-partner? Answer Date of Assessment Author No 08/16/2024 2:00 PM T [facility] [employer] * Q1: How often do you have a drink containing alcohol? Answer Date of Assessment Author Monthly or less 08/16/2024 2:00 PM T [facility] [employer] * Q2: How many drinks containing alcohol do you have on a typical day when you are drinking? Answer Date of Assessment Author 1 or 2 08/16/2024 2:00 PM T [facility] * Q3: How often do you have six or more drinks on one occasion? Answer Date of Assessment Author Less than monthly 08/16/2024 2:00 PM T [facility] [place] [employer] * Question Answer Date of Assessment Author Little interest or pleasure in doing things Not at all 08/16/2024 2:09 PM CDT Olga Douglas RMA Feeling down, depressed, or hopeless Not at all 08/16/2024 2:09 PM CDT Olga Douglas RMA * Over the past 2 weeks, how often have you been bothered by any of the following problems? Question Answer Date of Assessment Author Patient Health Questionnaire -2 Score 0 08/16/2024 2:09 PM CDT Olga Douglas RMA documented as of this encounter Miscellaneous Notes * Telephone Encounter - Rj Reese, RN - 08/16/2024 2:34 PM CDT Duplicate Request documented in this encounter Plan of Treatment Upcoming Encounters Date Type Department Care Team (Late st Contact Info) Description 02/18/2025 8:00 AM CDT Office Visit [facility] - [place] Care - [place] [address] [place] [address] Behzad Gustafson MD [address] [place] [address] documented as of this encounter Visit Diagnoses Diagnosis Alcohol withdrawal syndrome with complication (HCC) documented in this encounter Additional Health Concerns Assessment Noted Time PHQ-9 Depression Total Score: 0 08/16/20 24 2:09 PM CDT documented as of this encounter Care Teams Qualitative Researcher Relationship Specialty Start Date End Date Behzad Gustafson MD [address] [place] [address] PCP - General Internal Medicine 05/10/19 Kirby Mcknight MD [address] [place] [address] Consulting Physician Orthopaedic Surgery 02/24/21 Kira Eisenberg APRN, [facility] [address] [place] [address] Nurse Practitioner Gastroenterology 12/20/22 documented as of this encounter
--- OUTSIDE RECORDS SUMMARY | 2025-02-14 09:47 | XMS_ITS | Referral Summary ---
Author Organization [facility] Address [address] [place] [address] Care Team Providers Care Engineering Officer Name Role Phone Behzad Gustafson MD Primary [...] MMR 11/28/1989 OPV 12/03/1990,03/21/1989,1988 ,1988 Tdap 01/31/2021 Social History Tobacco Use Types Packs/Day Years [...] on file Legal Sex Male 4:43 AM [employer] Gender Identity Not on file Sexual Orientation Not on file Last Filed Vital Signs [...] Plan of Treatment Not on file Insurance [facility] CHO[facility] PL[facility] Advance Directives For more information, please contact: [phone] * Full Code (Latest Code Status on File) Date Activated Date Inactivated Comments 02/12/2021 7:04 AM 02/13/2021 8:04 PM Healthcare Agents on File Name Relationship Healthcare Agent Relationshi p Communication Stacy Jones Spouse First Alternate Health Car e Agent Care Teams Engineering Officer Relationship Specialty Start Date End Date Behzad Gustafson MD PCP - General 10/12/19 Tim Velasquez MD Consulting Physician General Surgery 02/13/21
== END 2025-02-14 09:20 | disposition home or self-care (01) ==
PROVIDERS: Emergency Provider Nurse Practitioner Family; PCP Internal Medicine
DX: S39.012A Strain of muscle, fascia and tendon of lower back, initial encounter (principal); X50.0XXA Overexertion from strenuous movement or load, initial encounter; R03.0 Elevated blood-pressure reading, without diagnosis of hypertension; K21.9 Gastro-esophageal reflux disease without esophagitis; Z86.16 Personal history of COVID-19
CPT/HCPCS: 99213; G0463